=== PATIENT | female | born 1960 | race Caucasian/White ===

== ENCOUNTER → 2016-06-26 | Outpatient (CLI) | payer BC ==
[~2016-06-26] MED LIST: ASCO250T4 PO; CHOL1TAB42 PO; CHOLCAP5 PO; CYNI1000 INJ; DIGE1CAP7 PO; FAMO20TA11 PO; FERR1TAB23 PO; IBUP-1105 PO; MAGN500C PO; MAGNESIUM PO; MISCCAP PO; MISCCAP80 PO; MULT-506 PO; MULTTAB58 PO; OMEG12006 PO; OMEP20TA PO; TURM1CAP4 PO; TURM500T PO; TYL325X PO; [UNRECOGNIZED DRUG - OTHER] PO
--- NOTE | 2016-06-27 15:11 | MAMMOGRAPHY REPORT ---
BILATERAL DIGITAL SCREENING MAMMOGRAM TOMOSYNTHESIS WITH CAD: 06/26/2016 CLINICAL HISTORY: Routine screening. Patient has no complaints. TECHNIQUE: Breast tomosynthesis in addition to standard 2D mammography was performed. Current study was also evaluated with a Computer Aided Detection (CAD) system. COMPARISON: Comparison is made to exams dated: 05/04/2015 mammogram, 04/29/2014 mammogram, 11/26/2013 mammogram - [facility], 01/13/2009, 01/19/2010 mammogram, and 01/25/2011 mammogram - [facility]. BREAST COMPOSITION: The tissue of both breasts is extremely dense, which lowers the sensitivity of mammography. FINDINGS: There are mild vascular calcifications and scattered stable round and punctate microcalcif ications bilaterally. No obvious new mass, architectural distortion or cluster of microcalcificatio ns is seen. IMPRESSION: ACR BI-RADS CATEGORY 1: NEGATIVE There is no mammographic evidence of malignancy. A 1 year screening mammogram is recommended. The p atient will receive written notification of the results. Approximately 10% of breast cancers are not detected with mammography. A negative mammographic repor t should not delay biopsy if a clinically suggestive mass is present. Rosie Mendes M.D. ay/:06/26/2016 16:15:31 Embossograph Operator: Danielle BOLES)(Jocelin)(BD), [facility] letter sent: Normal /2 BI-RADS Code: ACR BI-RADS Category 1: Negative
== END | disposition home or self-care (01) ==
LOC: C.MAMM 13:06
PROVIDERS: ATTEND Obstetrics & Gynecology
DX: Z12.31 Encounter for screening mammogram for malignant neoplasm of breast (principal)

== ENCOUNTER → 2016-09-19 | Day surgery (SDC) | payer BC ==
[2016-09-12 10:18] VITALS: BMI 18.0
[~2016-09-19] VITALS: Ht 172.7 cm; Wt 54.5 kg
[~2016-09-19] MED LIST changes: -ASCO250T4 PO; -CHOLCAP5 PO; -CYNI1000 INJ; -FAMO20TA11 PO; -FERR1TAB23 PO; -IBUP-1105 PO; -MAGN500C PO; -MISCCAP PO; -MULTTAB58 PO; -OMEP20TA PO; -TURM500T PO; -TYL325X PO
[2016-09-19 12:04] VITALS: Ht 172.7 cm; Wt 54.5 kg
[2016-09-19 15:00] VITALS: BP 105/76; PULSE 63; TEMP 36.3; O2SAT 100
--- NOTE | 2016-09-20 15:25 | OPERATIVE REPORT ---
DATE OF OPERATION: 09/19/2016 PROCEDURE: Hydrogen breath test for small bowel bacterial overgrowth. INDICATIONS: The patient is complaining of abdominal pain and bloating. DESCRIPTION OF PROCEDURE: The patient ingested 10 grams of lactulose and breath tests were performed at 20 minute intervals for 3 hours. The patient's baseline hydrogen was 4 during the entire 3-hour monitor. She experienced no symptoms and the hydrogen got was 6 at 160 minutes and ranged from 3-6 during this time. These results indicate that she does not have small bowel bacterial overgrowth. IMPRESSION: Negative breath test for small bowel bacterial overgrowth. I attest to the content of the Intraoperative Record and any orders documented therein. Any exceptio ns are noted below.
== END | disposition home or self-care (01) ==
LOC: C.GI 11:38
PROVIDERS: ATTEND Internal Medicine Gastroenterology
DX: R14.0 Abdominal distension (gaseous) (principal); R10.9 Unspecified abdominal pain

== ENCOUNTER → 2016-10-09 | Outpatient (CLI) | payer BC ==
--- NOTE | 2016-10-09 09:57 | DIAGNOSTIC IMAGING REPORT ---
ABDOMINAL ULTRASOUND COMPLETE HISTORY: No pathology GENERALIZED ENLARGED LYMPH NODES. COMPARISON: 05/29/2016 FINDINGS: Pancreas: The pancreas demonstrates a normal echotexture. Liver: Unchanging slightly hypoechoic masses produces described is potential focal nodular hyperplasia. Gallbladder: No gallbladder wall thickening. No gallstones. CBD: 3 mm Kidneys: No hydronephrosis. Spleen: Normal in size. Aorta: Normal in caliber. IVC: Patent. IMPRESSION: Stable evaluation of the abdomen. 2. Unchanging nodularity of the liver. 3. No new or interval process. Electronically signed by: Carlos Antony M.D. 10/09/2016 9:55 AM Dictated Date/Time: 10/09/2016 9:51 AM
== END | disposition home or self-care (01) ==
LOC: C.ULTR 09:01
PROVIDERS: ATTEND Internal Medicine Gastroenterology
DX: R59.1 Generalized enlarged lymph nodes (principal)

== ENCOUNTER → 2016-11-08 | Outpatient (CLI) | payer BC ==
[2016-11-08 16:05] LABS: BASO % 0.6 %; BASO ABS # 0.03 K/uL (0-0.2); COMPLETE YES; EOS % 2.1 %; LYMPH % 28.5 %; LYMPH ABS # 1.47 K/uL (1.2-3.4); MEAN CELL VOLUME 87.3 fL (80-100); MEAN CORPUSCULAR HEMOGLOBIN 28.8 pg (25-34); MEAN PLATELET VOLUME 9.4 fL (7.4-10.4); MONO % 8.7 %; NEUT % 60.1 %; PLATELET COUNT 186 K/uL (130-400); RED BLOOD COUNT 4.24 M/uL (4.2-5.4); WHITE BLOOD COUNT 5.16 K/uL (4.8-10.8)
[2016-11-08 16:24] LABS: CALCIUM 9.3 mg/dl (8.5-10.1)
[2016-11-08 16:38] LABS: FERRITIN 187.5 ng/ml (8.0-388.0); THYROID STIMULATING HORMONE 1.06 uIu/ml (0.300-4.500)
== END | disposition home or self-care (01) ==
LOC: C.LAB 15:22
PROVIDERS: ATTEND Specialist
DX: D50.8 Other iron deficiency anemias (principal); N94.9 Unspecified condition associated with female genital organs and menstrual cycle

== ENCOUNTER → 2016-11-13 | Outpatient (CLI) | payer BC ==
--- NOTE | 2016-11-13 09:02 | DIAGNOSTIC IMAGING REPORT ---
THYROID ULTRASOUND CLINICAL HISTORY: Thyroid nodule. COMPARISON STUDY: Thyroid ultrasound May 09, 2016. TECHNIQUE: Sonography of the thyroid gland was performed. FINDINGS: The right thyroid lobe measures 4.9 x 1.3 x 1.5 cm and the left lobe measures 4.8 x 1.1 x 1.3 cm. There are few small cystic lesions within the thyroid gland which measure up to 3 mm. Several these have echogenic foci with comet tail artifact consistent with colloid cysts. The small lesion shown on exam of May 09, 2016 is similar to prior study. In retrospect, the small lesions shown on today's exam were likely present on prior study. 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 No suspicious thyroid nodules by sonography. Electronically signed by: hSahzad Murphy M.D. 11/13/2016 9:01 AM Dictated Date/Time: 11/13/2016 8:58 AM
== END | disposition home or self-care (01) ==
LOC: C.ULTR 08:12
PROVIDERS: ATTEND Family Medicine
DX: E04.1 Nontoxic single thyroid nodule (principal)

== ENCOUNTER → 2017-05-07 | Outpatient (CLI) | payer BC ==
[2017-05-07 15:27] LABS: THYROID STIMULATING HORMONE 1.07 uIu/ml (0.300-4.500)
== END | disposition home or self-care (01) ==
LOC: C.LAB1850 13:22
PROVIDERS: ATTEND Obstetrics & Gynecology
DX: R53.83 Other fatigue (principal)

== ENCOUNTER → 2017-09-25 | Outpatient (CLI) | payer BC ==
--- NOTE | 2017-09-26 07:56 | MAMMOGRAPHY REPORT ---
BILATERAL DIGITAL SCREENING MAMMOGRAM TOMOSYNTHESIS WITH CAD: 09/25/2017 CLINICAL HISTORY: Routine screening. TECHNIQUE: Breast tomosynthesis in addition to standard 2D mammography was performed. Current study was also evaluated with a Computer Aided Detection (CAD) system. COMPARISON: Comparison is made to exams dated: 06/26/2016 mammogram, 05/04/2015 mammogram, 04/29/2014 m ammogram, 04/23/2013 mammogram, 04/10/2012 mammogram, and 01/25/2011 mammogram - [facility]. BREAST COMPOSITION: The tissue of both breasts is extremely dense, which lowers the sensitivity of m ammography. FINDINGS: There are stable round and punctate microcalcifications in the right breast. No obvious ne w mass, architectural distortion or cluster of suspicious microcalcifications is seen. IMPRESSION: ACR BI-RADS CATEGORY 1: NEGATIVE There is no mammographic evidence of malignancy. A 1 year screening mammogram is recommended. The pa tient will receive written notification of the results. Approximately 10% of breast cancers are not detected with mammography. A negative mammographic report should not delay biopsy if a clinically suggestive mass is present. Rosie Mendes M.D. ay/:09/25/2017 17:38:48 Library Cataloging Technician: Cary SANCHEZ(R)(M), [facility] letter sent: Normal 1/2 BI-RADS Code: ACR BI-RADS Category 1: Negative
== END | disposition home or self-care (01) ==
LOC: C.MAMM 13:14
PROVIDERS: ATTEND Obstetrics & Gynecology
DX: Z12.31 Encounter for screening mammogram for malignant neoplasm of breast (principal)

== ENCOUNTER → 2017-10-05 | Outpatient (CLI) | payer BC | END | disposition home or self-care (01) | LOC: C.PAPS 12:13 | PROVIDERS: ATTEND Obstetrics & Gynecology | DX: Z01.419 Encounter for gynecological examination (general) (routine) without abnormal findings (principal) ==

== ENCOUNTER → 2017-10-09 | Outpatient (CLI) | payer BC ==
--- NOTE | 2017-10-10 07:51 | MAMMOGRAPHY REPORT ---
ULTRASOUND OF BOTH BREASTS: 10/09/2017 CLINICAL HISTORY: 57-year-old woman presents for diagnostic ultrasound. On recent physical exam her physician felt a smooth mobile mass in the 7:00 to 8:00 right breast. She recently had a benign (BI- RADS 2) screening mammogram performed on 09/25/2017. COMPARISON: Comparison is made to exams dated: 09/25/2017 mammogram, 06/26/2016 mammogram, 05/04/2015 ma mmogram, 04/29/2014 mammogram, 04/23/2013 mammogram, and 04/10/2012 mammogram - [facility]. FINDINGS: Targeted ultrasound was performed in the lower outer quadrant of the right breast. On palp ation, there are smooth ovoid nodular areas identified in the 6:00 and targeted ultrasound performed directly 8:00 right breast. Over the nodular areas demonstrates normal dense glandular tissue. Ther e is no evidence of a suspicious solid or cystic mass, focal skin thickening or drainable fluid colle ction. IMPRESSION: ACR BI-RADS CATEGORY 2: BENIGN There is no targeted sonographic evidence of malignancy or other suspicious abnormality to explain th e smooth ovoid nodular areas in the right lower outer quadrant, initially identified by the patient's physician. Re-review of the most recent screening mammogram performed 09/25/2017 does not demonstrate any obvious mass, focal area of distortion, asymmetry or new calcifications, with particular attenti on to the right lower outer quadrant. Therefore, continued clinical follow-up is recommended and it should be noted that biopsy of a clinically suspicious mass should not be precluded by negative imagi ng. These results and recommendations were discussed with the patient at the time of the exam. Rosie Mendes M.D. ay/:10/09/2017 13:51:35 Attending Technologist: Cary Kimble RT(R)(M), [facility] Catering Chef: Dr. Rosie Mendes, [facility] letter sent: Normal 1/2 BI-RADS Code: ACR BI-RADS Category 2: Benign
== END | disposition home or self-care (01) ==
LOC: C.MAMM 13:25
PROVIDERS: ATTEND Obstetrics & Gynecology
DX: N63.10 Unspecified lump in the right breast, unspecified quadrant (principal)